=== PATIENT | female | born 1995 | race African-American/Black ===

== ENCOUNTER 2021-01-04 15:25 | Emergency (ER) | payer BC ==
[~2021-01-04] VITALS: Ht 160 cm; Wt 95.3 kg
[2021-01-04 15:32] VITALS: BP 122/78
== END 2021-01-04 16:54 | disposition home or self-care (01) ==
LOC: ER 15:25
DX: R05 Cough (principal); Z20.822 Contact with and (suspected) exposure to COVID-19

== ENCOUNTER 2021-01-10 18:13 | Emergency (ER) | payer BC ==
[~2021-01-10] VITALS: Ht 160 cm; Wt 95.3 kg
[2021-01-10 18:20] VITALS: BP 137/79
== END 2021-01-10 18:50 | disposition home or self-care (01) ==
LOC: ER 18:13
DX: R05 Cough (principal); Z20.822 Contact with and (suspected) exposure to COVID-19